=== PATIENT | female | born 1990 | race Caucasian/White ===

== ENCOUNTER 2017-02-24 20:15 | Emergency (ER) | payer OTHER ==
--- NOTE | 2017-02-24 21:37 | PD ---
HPI Chief Complaint Back pain Date Seen: Feb 24, 2017 Travel History International Travel<30 Days: No Contact w/Intl Traveler<30Days: No Known Affected Area: No History of Present Illness HPI at 37w 0d presents with c/o back pain. Reports pain present for several weeks. Denies LOF/ctxs/VB. Reports good movement. Denies urinary/bowel problems. History Past Medical History Medical History: Denies Significant Hx Obstetric History Obstetric History FT C/S Past Surgical History Narrative Surgical Previous C/S Family History Family History: Negative Social History Alcohol Use: No Tobacco Use: No Substance Abuse: No Physical Exam AFVSS BP133/84 Narrative GENERAL: Well-nourished, well-developed patient. SKIN: Warm and dry. HEAD: Normocephalic and atraumatic. EYES: No scleral icterus. No injection or drainage. ENT: No nasal drainage noted. Mucous membranes pink. Airway patent. NECK: Supple, trachea midline. No JVD. CARDIOVASCULAR: Regular rate and rhythm without murmurs, gallops, or rubs. RESPIRATORY: Breath sounds equal bilaterally. No accessory muscle use. BREASTS: Bilateral exam showed no masses , no retractions, no nipple discharge. ABDOMEN/GI: Abdomen soft, non-tender, bowel sounds present, no rebound, no guarding Gravid to [-] weeks size Fundal Height: [-] GENITOURINARY: External Genitalia: intact and normal in appearance BUS glands: [-] Cervix: [-] Dilatation: [0] exam per RN Effacement: [50] Station: [2] Presentation: [-] Membranes: [intact or ruptured] Uterine Contractions: [irritibility] FHT's: Category: [1] Baseline: [140] Reactive: [reactive] Variability: [moderate] Decels: [none] EXTREMITIES: No cyanosis or edema. BACK: Nontender without obvious deformity. No CVA tenderness. NEUROLOGICAL: Awake and alert. Motor and sensory grossly within normal limits. Five out of 5 muscle strength in all muscle groups. Normal speech. MDM Interpretation(s) IUP at 37w 0d with back pain. Plan D/w patient Tylenol, hydration, and supportive therapies. Labor precautions given. Close f/u with OB provider. All questions answered. Diagnosis Diagnosis: Primary Impression: 37 weeks gestation of Additional Impressions: Previous section Back pain affecting in third trimester Disposition: 01 DISCHARGE HOME Condition: Lorri Mejia MD Feb 24, 2017 21:36
== END 2017-02-24 21:58 | disposition home or self-care (01) ==
LOC: HOBED 20:15
DX: O26.893 Other specified pregnancy related conditions, third trimester (principal); M54.9 Dorsalgia, unspecified; Z3A.37 37 weeks gestation of pregnancy
CPT/HCPCS: 59025

== ENCOUNTER 2017-03-10 06:32 | Inpatient (IN) | payer OTHER ==
--- NOTE | 2017-03-09 15:18 | MH ---
cc: CIERA FRAZIER DATE OF ADMISSION: 03/10/2017 DATE OF 1990 PATIENT HISTORY The patient is a preop for elective repeat section at term. She is a 26-year-old female 2, para 1, last menstrual period was June 10, 2016. The patient's due date estimated date confinement is 03/17/2017. The patient has a history of previous section in 2011 for elective repeat section at term. OBSTETRICAL HISTORY The patient's obstetrical history is uncomplicated. The patient's group B strep status is negative. Blood type is O+. course was uncomplicated. PAST MEDICAL HISTORY Notable for a history of: 1. Renal calculi 2. Cholecystectomy in 2015 3. section in 2011 ALLERGIES The patient has no known drug allergies. MEDICATIONS Currently takes Claritin and vitamins daily. SOCIAL HISTORY Patient is . She denies use of alcohol, tobacco or illicit substances. FAMILY HISTORY Noncontributory PHYSICAL EXAMINATION The patient is a well-appearing female in no acute stress. VITAL SIGNS: Stable. Blood pressures 118/70, pulse and respiratory rate are normal, heart tones are in the 140's. HEENT: Shows no adenopathy or thyromegaly. NECK: Supple. Full range of motion. LUNGS: Clear in all lees. CARDIAC: Regular rhythm without murmur, rub or gallop. ABDOMEN: Gravid, full-term, previous a history incision is well healed. PELVIC: Exam is deferred. EXTREMITIES: Symmetrical, full range of motion. There is no cyanosis, clubbing or edema. NEUROLOGIC: Exam is grossly intact and nonfocal. ASSESSMENT Patient at 39 weeks intrauterine gestation with previous section for elective repeat. Uncomplicated course. Group B strep status is negative. MD DARRYL Antonio/KAIA /12:45 PM /3:15 PM TALI
[2017-03-10] VITALS (19 sets, daily range): BP systolic 116–158; BP diastolic 72–99; PULSE 18–145; RESP 16–20; TEMP 97.2–98.2; O2SAT 100
[~2017-03-10] VITALS: Ht 162.6 cm; Wt 77.0 kg
[2017-03-10] MEDS ORDERED: LACTATED RINGER'S 1000 ML IV SCH (06:45)
[2017-03-10] MEDS ORDERED: CITRIC ACID-SODIUM CITRATE LIQ 30 ML UDC PO SCH (06:45)
[2017-03-10] MEDS ORDERED: ceFAZolin 2 GM PREMIX 50 ML IV SCH (06:45)
[2017-03-10] MEDS ORDERED: LACTATED RINGER'S 1000 ML IV ONE (06:45)
[2017-03-10 07:11] LABS: AUTOMATED NEUTROPHIL # 6.7 TH/MM3 (1.8-7.7); BASOPHIL # 0.1 TH/MM3 (0-0.2); BASOPHIL % 0.7 % (0.0-2.0); EOSINOPHIL % 0.4 % (0.0-4.0); HEMATOCRIT 31.6 % (35.0-46.0); HEMO FLAGS DIFF FINAL; LYMPH % 28.2 % (9.0-44.0); MEAN CELL VOLUME 72.1 FL (80.0-100.0); MEAN CORPUSCULAR HEMOGLOBIN 22.9 PG (27.0-34.0); MEAN CORPUSCULAR HGB CONC 31.8 % (32.0-36.0); MONO % 6.9 % (0.0-8.0); NEUT % 63.8 % (16.0-70.0); PLATELET COUNT 150 TH/MM3 (150-450); RED BLOOD COUNT 4.38 MIL/MM3 (4.00-5.30); RED CELL DISTRIBUTION WIDTH 17.2 % (11.6-17.2); WHITE BLOOD COUNT 10.5 TH/MM3 (4.0-11.0)
[2017-03-10] MEDS ORDERED: OXYTOCIN 10 UNIT/ML AMP ONE (07:16)
[2017-03-10] MEDS ORDERED: EPIDURAL-DO NOT ADMINISTER ANTICOAGULANTS PRN (07:55)
[2017-03-10] MEDS ORDERED: EPIDURAL-DIPHENHYDRAMINE HCL 50 MG CAP PO PRN (07:55)
[2017-03-10] MEDS ORDERED: EPIDURAL-NO SYSTEMIC NARCOTICS PRN (07:55)
[2017-03-10] MEDS ORDERED: EPIDURAL-DIPHENHYDRAMINE HCL 50 MG/ML VIAL IV PUSH PRN (07:55)
[2017-03-10] MEDS ORDERED: EPIDURAL-NALOXONE HCL 0.4 MG/ML AMP IV PRN (07:55)
[2017-03-10] MEDS ORDERED: MORPHINE SULFATE PF 5 MG/10 ML VIAL ONE (09:10)
[2017-03-10] MEDS ORDERED: ONDANSETRON HCL 4 MG/2 ML VIAL ONE (09:11)
[2017-03-10] MEDS ORDERED: SODIUM CHLORIDE 0.9% FLUSH 10 ML FLUSH IV FLUSH PRN (09:15)
[2017-03-10] MEDS ORDERED: ACETAMINOPHEN 1000 MG/100 ML VIAL IV ONE (09:15)
[2017-03-10] MEDS ORDERED: SIMETHICONE 80 MG CHEWABLE TAB PO PRN (09:15)
[2017-03-10] MEDS ORDERED: OXYTOCIN 30 UNITS-500ML PREMIX 500 ML IV ONE (09:15)
[2017-03-10] MEDS ORDERED: oxyCODONE/ACETAMINOPHEN 5 MG/325 MG TAB PO PRN (09:15)
[2017-03-10] MEDS ORDERED: SODIUM CHLORIDE 0.9% FLUSH 10 ML FLUSH IV FLUSH SCH (09:15)
[2017-03-10] MEDS ORDERED: ONDANSETRON HCL 4 MG/2 ML VIAL IV PUSH PRN (09:15)
--- NOTE | 2017-03-10 09:16 | PD.OB.DELI ---
Procedure Note Section Procedure Performed by Alex Dennis Procedure: Repeat Low Transverse Sec Indication for delivery: Desired elective repeat Previous condition: None Informed consent obtained: For anesthesia, For procedure Confirmed correct: Patient, Procedure, Site, Time-out taken Anesthesia: Spinal Medication prior to procedure: As documented in eMAR Monitoring during procedure: Blood pressure monitoring, telemetry monitor, doppler, Pulse oximetry Urinary catheter: Inserted using sterile technique, To dependent drainage Sterile preparation: Duraprep, In usual fashion Position: Supine with wedge to right side, Supine with safety belt applied Operative Features Skin Incision: Pfannenstiel Uterine Incision: Low transverse w/knife / scissors Membranes Ruptured: Artificially Presentation: Occiput anterior Delivery date: Mar 10, 2017 Delivery time: 09:00 Delivery of : Uneventful Infant: Male One Minute : 9 Five Minute : 9 Weight: 7/14 Status of : Viable, Umbilical cord, Nursery present Placenta delivered: Intact Medications: Antibiotics, Oxytocin Procedure tolerated: Well Maternal Complications: Cardiac (SVT with HR in 180's, responded to use of beta zoran by anesthesia) Maternal Condition: Stable Condition: Stable Alex Dennis MD Mar 10, 2017 09:16
[2017-03-10] MEDS ORDERED: OXYTOCIN 30 UNITS-500ML PREMIX 500 ML ONE (09:37)
--- NOTE | 2017-03-10 09:48 | MP ---
cc: ALEX FRAZIER DATE OF SURGERY 03/10/2017 DATE OF 1990 PREOPERATIVE DIAGNOSIS Term intrauterine , previous section for elective repeat section. PROCEDURE Repeat low transverse section, delivery of a viable male infant. POSTOPERATIVE DIAGNOSIS 1. Term intrauterine , previous section for elective repeat section. 2. Sinus tachycardia, SVT heart rate 180 responded to beta zoran. ANESTHESIA Spinal ESTIMATED BLOOD LOSS 600 cc DRAINS Carvajal to gravity SURGEON Alex Frazier MD INDICATIONS FOR PROCEDURE The patient at term, previously was considering a trial of labor. After she progressed through the , she changed and decided to proceed with an elective repeat section. PROCEDURE DESCRIPTION The patient received Ancef 2 grams prophylactically. She was taken back to the operative suite where she underwent spinal anesthetic by Anesthesia without complication. She was then prepped and draped. Carvajal was inserted by sterile technique and she had sequential placed on her lower extremities for VTE prophylaxis. After she was prepped and draped, time-out was conducted, agreed by all present in the room. Initiation of the procedure, the patient good pain control. The incision was made through the previous Pfannenstiel incision. It was carried down through the skin and the subcutaneous layer identifying the fascia and then scoring the fascia in the midline and dissecting it laterally away from the rectus muscle. Separation of the rectus muscle in the midline was identified, identifying the peritoneum and opening it sharply without complication. The incision was extended. The peritoneal layer was then opened to allow the bladder to fall away from the lower uterine segment. A transverse incision was made in the lower uterine segment. A thin lower uterine segment was identified, but no window or dehiscence. Clear fluid was noted. The was then delivered easily. After the retractors were removed, the nuchal cord was identified easily reduced and it was loose. The was delivered in total with good tone and cry and the cord was doubly clamped and cut and the was taken to the isolette by the nursery staff. Cord samples obtained for typing. The placenta was then removed intact with trailing membranes. The uterus was explored. No retained tissue. It was laurence nicely after application of IV Pitocin. The uterus was closed in a double layer, first with a running locking suture of 0 Monocryl followed by a second imbricating suture of 0 Monocryl. Examination of the pelvis demonstrated no active bleeding. All free blood and clot was removed. Full count was made and correct and then the peritoneum was closed with a running suture of 2-0 Monocryl. Muscle bellies reapproximated loosely with an interrupted 2-0 Monocryl and then the fascia was closed with a 0 Vicryl in a simple running fashion with good result. Subcutaneous layer was irrigated, and dried. No active bleeding was noted. It was closed with a running suture of 2-0 Monocryl and maru were used close the skin edge with good result. Dressing was applied. The final count was correct. The patient is stable. Anesthesia identified the finding of persistent sinus tachycardia, required the use of a beta-zoran for multiple doses to get the patient into a normal rhythm and rate. The patient remained stable throughout with no evidence of change in vital signs. Blood pressure and O2 saturation were normal. At the completion of the case, again the final count was correct. She was taken to the recovery room in stable condition to be placed on telemetry. MD DARRYL Antonio/KAIA /9:17 AM /9:24 AM TALI
--- NOTE | 2017-03-10 11:12 | MB ---
cc: BETTY SOSA DATE OF CONSULTATION 03/10/2017 REASON FOR CONSULTATION Supraventricular tachycardia. HISTORY OF PRESENT ILLNESS The patient is a 26-year-old white female with no major past medical history who today while undergoing section reportedly developed paroxysmal supraventricular tachycardia. The anesthesia staff administered beta zoran therapy with resolution of the tachyarrhythmia. The patient, at this time feels, "great." She denies any history of palpitations. She also denies syncope, near-syncope, lightheadedness, chest pain, shortness of breath, pedal edema, paroxysmal nocturnal dyspnea. She has had another section as well as cholecystectomy in the past without any complications. PAST MEDICAL HISTORY None PAST SURGICAL HISTORY 1. sections 2. Cholecystectomy CARDIAC MEDICATIONS None ALLERGIES NO KNOWN DRUG ALLERGIES. FAMILY HISTORY There is no significant family history of early myocardial infarction or sudden cardiac . SOCIAL HISTORY The patient denies alcohol or tobacco abuse. REVIEW OF SYSTEMS As in the history of present illness, otherwise negative or noncontributory. She also denies headache, abdominal pain, melena, dyspepsia. PHYSICAL EXAM On physical examination, her blood pressure 117/72 with a pulse of 75, respirations 18. GENERAL: She is a well-developed, well-nourished white female in no acute distress. HEENT: On examination, jugular venous pressure is normal. Carotid pulses are 2+ bilaterally and without bruits. CHEST: Examination of the chest reveals clear lung lees anteriorly. CARDIACL: On cardiac examination, she has a regular rhythm and rate without S3-S4 or murmur. ABDOMEN: On abdominal examination, palpation was not pursued. Bowel sounds are present. EXTREMITIES: Examination of extremities reveals no clubbing, cyanosis or edema. LABORATORY DATA Includes WBC 10.5, hemoglobin 10.0, platelets 150. IMPRESSION Paroxysmal supraventricular tachycardia in this 26-year-old white female with no major past medical history. Clinically, she has no definite history of prior tachyarrhythmias. At this time, by exam, she is back in a normal sinus rhythm. RECOMMENDATIONS 1. No specific medical treatment at this time. She was suggested possible Valsalva maneuvers to use in the future should she experience rapid palpitations. 2. Check a baseline EKG. 3. We will follow up as needed. Please call if additional problems or questions arise. MD KIRSTIE Camacho/KAIA /10:53 AM /11:05 AM [email or web address]
[2017-03-10] MEDS ORDERED: KETOROLAC TROMETHAMINE 60 MG/2 ML (IM) VIAL IM ONE (12:00)
[2017-03-10] MEDS ORDERED: LACTATED RINGER'S 1000 ML INJ 1,000 ML IV SCH (14:06)
[2017-03-10] MEDS: IBUPROFEN 600 MG TAB PO PRN ×2 (17:36→23:58)
[2017-03-10] MEDS: oxyCODONE/ACETAMINOPHEN 5 MG/325 MG TAB PO PRN ×2 (17:36→23:57)
[2017-03-10] MEDS ORDERED: OXYTOCIN 30 UNITS-500ML PREMIX 500 ML IV PRN (19:15)
--- NOTE | 2017-03-10 19:25 | EKG ---
Date Performed: 03/10/2017 Time Performed: 11:30:24 PTAGE: 26 years EKG: Sinus rhythm NORMAL ECG NO PREVIOUS TRACING DOCTOR: Cuauhtemoc Stevens Interpretating Date/Time 03/10/2017 19:23:23
[2017-03-11 00:15] VITALS: BP 119/85; PULSE 84; RESP 18
[2017-03-11 05:30] VITALS: BP 135/84; PULSE 88; RESP 18; TEMP 97.8
[2017-03-11] MEDS: IBUPROFEN 600 MG TAB PO PRN ×4 (05:34→23:26)
[2017-03-11] MEDS: oxyCODONE/ACETAMINOPHEN 5 MG/325 MG TAB PO PRN ×4 (05:35→21:17)
[2017-03-11 06:15] LABS: AUTOMATED NEUTROPHIL # 7.4 TH/MM3 (1.8-7.7); BASOPHIL # 0.1 TH/MM3 (0-0.2); BASOPHIL % 0.5 % (0.0-2.0); EOSINOPHIL # 0.1 TH/MM3 (0-0.4); HEMATOCRIT 25.7 % (35.0-46.0); HEMO FLAGS DIFF FINAL; LYMPH % 22.2 % (9.0-44.0); LYMPHOCYTE # 2.4 TH/MM3 (1.0-4.8); MEAN CELL VOLUME 72.2 FL (80.0-100.0); MEAN CORPUSCULAR HEMOGLOBIN 23.1 PG (27.0-34.0); MEAN CORPUSCULAR HGB CONC 32.1 % (32.0-36.0); MONO % 6.4 % (0.0-8.0); NEUT % 69.9 % (16.0-70.0); PLATELET COUNT 118 TH/MM3 (150-450); RED BLOOD COUNT 3.57 MIL/MM3 (4.00-5.30); RED CELL DISTRIBUTION WIDTH 17.3 % (11.6-17.2); WHITE BLOOD COUNT 10.6 TH/MM3 (4.0-11.0)
--- NOTE | 2017-03-11 08:47 | HHI.OB ---
Subjective Post Operative Day: 1 Remarks Doing well, eating, ambulating, voiding Objective Vitals/I&O Vital Signs Date Time Temp Pulse Resp B/P (MAP) Pulse Ox O2 Delivery O2 Flow Rate FiO2 03/11/17 05:30 97.8 88 18 135/84 (101) 03/11/17 00:15 84 18 119/85 (96) 03/10/17 20:00 91 03/10/17 20:00 98.2 91 20 141/89 (106) 03/10/17 14:37 97.9 85 16 132/92 (105) 03/10/17 11:30 80 133/81 (98) 03/10/17 11:30 98.1 18 03/10/17 10:13 18 100 03/10/17 10:13 75 117/72 (87) 03/10/17 10:13 75 117/72 (87) 03/10/17 10:13 18 100 03/10/17 10:04 97.6 03/10/17 09:59 82 18 121/81 (94) 100 03/10/17 09:45 18 100 03/10/17 09:45 80 117/73 (88) 03/10/17 09:30 18 116/73 (87) 03/10/17 09:30 83 03/10/17 09:30 20 100 03/10/17 09:15 97.2 84 20 124/73 (90) 100 03/10/17 09:15 89 118/75 (89) Result Diagram: 03/11/17 0607 Objective Remarks GENERAL: Well-nourished, well-developed patient. CARDIOVASCULAR: Regular rate and rhythm without murmurs, gallops, or rubs. RESPIRATORY: Breath sounds equal bilaterally. No accessory muscle use. ABDOMEN/GI: Abdomen soft, non-tender, bowel sounds present. Incision: dressing in place, min dry blood on dressing Fundus: Firm, non-tender at umbilicus. GENITOURINARY: Light to moderate bleeding. EXTREMITIES: No cyanosis or edema, non-tender, without signs of DVT. Medications and IVs Current Medications Medications (Trade) Dose Ordered Sig/Katarzyna Route Start Time Stop Time Status Last Admin Lactated Ringer's 1,000 ml @ 150 mls/hr Q6H40M IV 03/10/17 06:45 (Bicitra Liq) 30 ml BEAM BUILDER PO 03/10/17 06:45 03/13/17 06:44 Cefazolin Sodium/ Dextrose 50 ml @ 100 mls/hr BEAM BUILDER IV 03/10/17 06:45 03/13/17 06:44 Lactated Ringer's 1,000 ml @ 100 mls/hr Q10H IV 03/10/17 14:06 03/11/17 10:05 03/11/17 01:58 Oxytocin 500 ml @ 100 mls/hr UNSCH X1 PRN IV 03/10/17 19:15 03/11/17 19:14 (NS Flush) 2 ml BID IV FLUSH 03/10/17 09:15 (NS Flush) 2 ml UNSCH PRN IV FLUSH 03/10/17 09:15 (Mylicon Chew) 80 mg QID PRN PO 03/10/17 09:15 (Motrin) 600 mg Q6H PRN PO 03/10/17 09:15 03/11/17 05:34 (Percocet 5-325 Mg) 1 tab Q4H PRN PO 03/10/17 09:15 03/11/17 05:35 (Percocet 5-325 Mg) 2 tab Q4H PRN PO 03/10/17 09:15 (Lizy-Colace) 2 tab Q12H PRN PO 03/10/17 09:15 (M-M-R Ii Inj) 0.5 ml ONCE ONCE SQ 03/11/17 16:00 03/11/17 16:01 (Boostrix Inj) 0.5 ml ONCE ONCE IM 03/11/17 16:00 03/11/17 16:01 (Zofran Inj) 4 mg Q6H PRN IV PUSH 03/10/17 09:15 Assessment/Plan Problem List: (1) Previous section ICD Codes: Z98.891 - History of uterine scar from previous surgery Status: Acute Assessment and Plan POD 1 cont routine care Would like circ but has not paid. Discharge Planning POD 2 or 3 Nohemy Morrissey MD Mar 11, 2017 08:47
[2017-03-11 09:00] VITALS: BP 120/79; PULSE 78; RESP 16; TEMP 98.2
[2017-03-11] MEDS: DOCUSATE SODIUM 50 MG/SENNA 8.6 MG TAB PO PRN ×2 (10:59→23:26)
[2017-03-11] MEDS ORDERED: MEASLES, MUMPS, RUBELLA VACCINE 0.5 ML VIAL SQ ONE (16:00)
[2017-03-11] MEDS ORDERED: DIPHTH/TETANUS/ACEL PERTUSSIS (BOOSTER) 0.5 ML VIAL/PFS IM ONE (16:00)
[2017-03-11 20:40] VITALS: BP 133/80; PULSE 87; RESP 20; TEMP 98.6
[2017-03-12] MEDS: oxyCODONE/ACETAMINOPHEN 5 MG/325 MG TAB PO PRN (07:01)
[2017-03-12] MEDS: IBUPROFEN 600 MG TAB PO PRN (07:01)
--- NOTE | 2017-03-12 07:46 | HHI.OB ---
Subjective Post Operative Day: 2 Remarks bottlefeeding, wants to go home today and rto wednesday for staple removal, +flatus ,pain controlled Objective Vitals/I&O Vital Signs Date Time Temp Pulse Resp B/P (MAP) Pulse Ox O2 Delivery O2 Flow Rate FiO2 03/11/17 20:40 98.6 20 03/11/17 20:40 87 133/80 (97) 03/11/17 09:00 78 120/79 (93) 03/11/17 09:00 98.2 16 Result Diagram: 03/11/17 0607 Objective Remarks GENERAL: Well-nourished, well-developed patient. CARDIOVASCULAR: Regular rate and rhythm without murmurs, gallops, or rubs. RESPIRATORY: Breath sounds equal bilaterally. No accessory muscle use. ABDOMEN/GI: Abdomen soft, non-tender, bowel sounds present. Incision: maru in place, C/D/I Fundus: Firm, non-tender at umbilicus. GENITOURINARY: Light to moderate bleeding. EXTREMITIES: No cyanosis or edema, non-tender, without signs of DVT. Medications and IVs Current Medications Medications (Trade) Dose Ordered Sig/Katarzyna Route Start Time Stop Time Status Last Admin Lactated Ringer's 1,000 ml @ 150 mls/hr Q6H40M IV 03/10/17 06:45 (Bicitra Liq) 30 ml RECORDER HELPER GRAVITY PROSPECTING PO 03/10/17 06:45 03/13/17 06:44 Cefazolin Sodium/ Dextrose 50 ml @ 100 mls/hr RECORDER HELPER GRAVITY PROSPECTING IV 03/10/17 06:45 03/13/17 06:44 (NS Flush) 2 ml BID IV FLUSH 03/10/17 09:15 (NS Flush) 2 ml UNSCH PRN IV FLUSH 03/10/17 09:15 (Mylicon Chew) 80 mg QID PRN PO 03/10/17 09:15 (Motrin) 600 mg Q6H PRN PO 03/10/17 09:15 03/12/17 07:01 (Percocet 5-325 Mg) 1 tab Q4H PRN PO 03/10/17 09:15 03/12/17 07:01 (Percocet 5-325 Mg) 2 tab Q4H PRN PO 03/10/17 09:15 (Lizy-Colace) 2 tab Q12H PRN PO 03/10/17 09:15 03/11/17 23:26 (Zofran Inj) 4 mg Q6H PRN IV PUSH 03/10/17 09:15 Assessment/Plan Problem List: (1) Previous section ICD Codes: Z98.891 - History of uterine scar from previous surgery Status: Acute (2) S/P repeat low transverse ICD Codes: Z98.891 - History of uterine scar from previous surgery Assessment and Plan POD 2 cont routine care Would like circ but has not paid. rto wednesday for staple removal Discharge Planning today Attending Attestation pt seen by Ara Plata MD Mar 12, 2017 07:46
[2017-03-12] MEDS ORDERED: IBUP-232 PO (07:49)
[2017-03-12] MEDS ORDERED: SENN1TAB PO (07:49)
[2017-03-12] MEDS ORDERED: OXYC1TAB63 PO (07:49)
--- NOTE | 2017-03-12 07:49 | HHI.DCPOC ---
Discharge Care Plan Your Health Problems Are: Pelvic pain Report Symptoms to Your Doctor -Temperature above 100.5 degrees -Redness, of incision or excessive or foul smelling drainage -Unusual pain or calf pain -Increased vaginal bleeding -Painful or difficulty urinating -Feelings of extreme sadness or anxiety after 2 weeks Goals to Promote Your Health * To prevent worsening of your condition and complications * To maintain your health at the optimal level Directions to Meet Your Goals Take your medications as prescribed Follow your dietary instruction Follow activity as directed Ensure plenty of rest for recovery Drink fluids for hydration Keep your appointments as scheduled Take your immunizations and boosters as scheduled If your symptoms worsen call your PCP, if no PCP go to Urgent Care Center or Emergency Room Smoking is Dangerous to Your Health. Avoid second hand smoke Call the 24-hour crisis hotline for domestic abuse at Ara Vogt MD Mar 12, 2017 07:49
[2017-03-12 08:50] VITALS: BP 110/87; PULSE 74; RESP 16; TEMP 98.3
== END 2017-03-12 12:04 | disposition home or self-care (01) | DRG 765 ==
LOC: H2EB 06:32 → H1EA 10:32
PROVIDERS: ADMIT Obstetrics & Gynecology; ATTEND Obstetrics & Gynecology
PROC: 10D00Z1 Extraction of Products of Conception, Low, Open Approach (ICD-10-PCS; principal; 2017-03-10)
DX: O34.211 Maternal care for low transverse scar from previous cesarean delivery (principal); O99.42 Diseases of the circulatory system complicating childbirth; I47.1 Supraventricular tachycardia; Z37.0 Single live birth; Z3A.39 39 weeks gestation of pregnancy
CPT/HCPCS: 59025; 85025; 86850; 86900; 86901; 90715; 93005; J0131; J0690; J1885; J2274; J2405; J2590; J7120